=== PATIENT | female | born 1950 | race Caucasian/White ===

== ENCOUNTER 2019-12-19 18:22 | Emergency (ER) | payer MEDICARE ==
[~2019-12-19 18:22] MED LIST: Iopamidol-370 76% 500 ML 1 ML ONE
[2019-12-19] MEDS ORDERED: Ondansetron PF 4 MG/2 ML Vial ONE (19:10)
[2019-12-19] MEDS ORDERED: Morphine 4 MG/ML VIAL ONE (19:10)
[2019-12-19 19:30] LABS: #Basophils 0.1 thou/uL (0.0-0.2); #Eosinphils 0.1 thou/uL (0.0-0.7); #Lymphocytes 1.1 thou/uL (1.20-3.40); #Monocytes 0.5 thou/uL (0.11-0.59); #Neutrophils 3.6 thou/uL (1.40-6.50); %Basophils 1.8 % (0.0-1.0); %Eosinophils 1.7 % (0.0-10.0); %Lymphocytes 20.8 % (21.0-51.0); %Monocytes 8.4 % (0.0-10.0); %Neutrophils 67.4 % (42.0-75.0); Hemoglobin 15.8 g/dL (12.0-16.0); Mean Corpuscular Hemoglobin 32.4 pg (27.0-31.0); Mean Corpuscular Volume 98.2 fL (78.0-98.0); Mean Platelet Volume 7.7 fL (7.4-10.4); Platelet Count 253 thou/uL (130-400); RBC Distribution Width 11.2 % (11.5-14.5); Red Blood Cell (RBC) Count 4.86 mill/uL (4.20-5.40); White Blood Cell (WBC) Count 5.4 thou/uL (4.8-10.8)
[2019-12-19 19:50] LABS: Lipase Less than 4 U/L (8-78)
[2019-12-19 20:24] LABS: Albumin 4.5 g/dL (3.4-4.8)
[2019-12-19 20:25] LABS: Chloride 100 mmol/L (98-107); Potassium 3.7 mmol/L (3.5-5.1)
[2019-12-19 20:26] LABS: Calcium 10.6 mg/dL (7.8-10.44); Sodium 141 mmol/L (136-145)
[2019-12-19 20:27] LABS: Globulin 2.4 g/dL (2.4-3.5); Glucose 110 mg/dL (83-110); Protein, Total 6.9 g/dL (6.0-8.3)
[2019-12-19 20:28] LABS: Anion Gap 14 mmol/L (10-20); Carbon Dioxide 31 mmol/L (23-31)
[2019-12-19 20:29] LABS: Bilirubin, Total 0.4 mg/dL (0.2-1.2)
[2019-12-19 20:30] LABS: Alkaline Phosphatase 99 U/L (40-110); Calc. Creatinine Clearance 0 mL/min (70-130); Estimated GFR-MDRD 77
[2019-12-19 20:31] LABS: BUN (Urea Nitrogen) 17 mg/dL (9.8-20.1)
[2019-12-19 20:32] LABS: AST (SGOT) 18 U/L (5-34)
[2019-12-19 20:33] LABS: ALT (SGPT) 20 U/L (8-55)
--- NOTE | 2019-12-19 20:59 | CT ---
CT arteriogram chest with IV contrast and 3-D imaging CT arteriogram abdomen with IV contrast and 3-D imaging HISTORY: Chest and abdomen pain with radiation to the back. FINDINGS: There is good contrast opacification of the pulmonary arteries and thoracic aorta with norm al branching of the great vessels. Minimal arterial calcification. Visceral arteries of the abdomen are patent. Normal caliber aorta. No retroperitoneal fluid. Pelvis was not imaged. Small low-density lesions of the liver have the appearance of cysts. Calcified mediastinal lymph node s are consistent with healed granulomatous disease. Prominent degenerative changes throughout the thoracolumbar spine with S-shaped rotatory scoliotic cu rvature. IMPRESSION : Mild atherosclerosis. No acute vascular abnormalities are demonstrated.
[2019-12-19] MEDS ORDERED: Ketorolac Tromethamine 30 MG/ML VIAL ONE (21:33)
--- NOTE | 2019-12-26 12:59 | EKG ---
Test Reason : [id number] Blood Pressure : / mmHG Vent. Rate : 066 BPM Atrial Rate : 066 BPM P-R Int : 178 ms QRS Dur : 094 ms QT Int : 440 ms P-R-T Axes : 069 024 061 degrees QTc Int : 461 ms Normal sinus rhythm Possible Left atrial enlargement Incomplete right bundle branch block Borderline ECG Confirmed by ESEQUIEL HAYDEN DO ([id number]), web editor MIKE SAWYER ([id number]) on 12/26/2019 12:59:29 PM Referred By: Confirmed By:ESEQUIEL HAYDEN DO
== END 2019-12-19 22:20 | disposition home or self-care (01) ==
LOC: ERS 18:22
DX: M54.6 Pain in thoracic spine (principal); E78.00 Pure hypercholesterolemia, unspecified; G62.9 Polyneuropathy, unspecified; Z79.899 Other long term (current) drug therapy
CPT/HCPCS: 71275; 72191; 74175; 80053; 83690; 84484; 85025; 93005; 96361; 96374; 96375; J1885; J2270; J2405; Q9967